=== PATIENT | male | born 1950 ===

== ENCOUNTER 2025-07-31 15:22 | Emergency (ER) | payer MEDICARE, SELFPAY ==
[2025-07-31 15:24] VITALS: BP 145/86
[2025-07-31 15:51] VITALS: BMI 25.2
[2025-07-31] MEDS: ANCEF 10 IV (17:48)
[2025-07-31 18:01] VITALS: BP 140/96
--- NOTE | 2025-07-31 18:03 | ED.GENMED ---
History of Present Illness
General
Chief Complaint: Skin Surface Trauma
Source: patient and family
Exam Limitations: none
Time Seen by Provider: 07/31/25 16:19
Nursing documentation reviewed up to this point in time: agreed with
History of Present Illness
History of Present Illness:
75-year-old male presenting to the emergency department today with concerns of a thumb injury from a log splitter prior to arrival. Noticed immediate bleeding to the area and presented to the ER. Not sure his last tetanus shot was. He was wearing
leather gloves denies any noticeable foreign bodies.
Review of Systems
Review of Systems
Allergies reviewed?: Yes
All Other Systems: ROS reviewed and negative except as documented in HPI and ROS
Phy Exam
Physical Exam
Physical Exam:
GENERAL: Alert , in no apparent distress
EYE: pupils equal and reactive
NECK: Supple, no significant adenopathy.
ENT: o/p clr, mmm.
CARDIAC: Regular rate and rhythm .
LUNGS: Clear breath sounds bilaterally, no acute respiratory distress, no wheezes/rales/rhonchi
ABDOMEN: Soft, without focal tenderness, no r/g, no cvat
NEUROLOGICAL: Alert and oriented, no focal neuro deficits
SKIN: Laceration to the distal dorsal thumb just below the nail of the left side. Warm and dry, skin intact.
MUSCULOSKELETAL: No edema, well perfused.
PSYCH: Normal and appropriate interaction.
Course
Orders/Labs/Results
Orders:
Orders
07/31/25 15:54
Finger(s)/Thumb 2 View Lt [CR Finger(s)/thumb Min 2 Vw Lt] Urgent
Comment:
Reason For Exam: crush injury to left thumb
Indicate Which Finger:: Thumb
07/31/25 16:38
CeFAZolin 2 GRAM [Ancef] 2 grams in 10 ml IV NOW
07/31/25 17:59
Tetanus/Diphth/Acelpertussis [Adacel] 0.5 ml IM .ONCE ONE
Vital Signs
Initial and Last Documented VS:
Initial Vital Signs
Temp Pulse Resp BP Pulse Ox
97.9 F 81 18 145/86 96
07/31/25 15:24 07/31/25 15:24 07/31/25 15:24 07/31/25 15:24 07/31/25 15:24
Last Documented Vital Signs
Temp Pulse Resp BP Pulse Ox
97.9 F 81 18 140/96 95
07/31/25 15:24 07/31/25 18:01 07/31/25 18:01 07/31/25 18:01 07/31/25 18:01
Procedures
Laceration Closure
Left Dorsal First Finger:
Status of Wound: clean
Size of Wound in cm: 3
Description of Wound Edges: surrounded by abrasion and other (Partial fingertip avulsion just distal to the IPJ)
Preparation: cleaned with saline
Anesthesia: Digital-Regional (3 cc of bupivacaine)
Revision/Debridement: minor revision and irrigate-direct pressure
Wound exploration: explored to base- no FB and no tendon involvement
Type of Closure: single layer closure and interrupted sutures
Skin Closure Material: other (4-0 Monocryl)
Number of sutures: 5
MDM/Problems Addressed
MDM/Problems Addressed:
75-year-old male presenting to the emergency department today with concerns of a laceration to the left thumb from a log splitter prior to arrival. Laceration just below the nail matrix with partial fingertip avulsion. Also has a underlying
comminuted nondisplaced fracture. This was discussed with orthopedics recommending approximating the area with sutures. This was sutured with 5 Monocryl sutures and advised for close outpatient follow-up. He was also splinted. He was given a
dose of Ancef and started on Keflex and also given updated tetanus shot. Return precautions given for any evidence of infection.
*Pulse Oximetry
SaO2: 95
Oxygen Mode of Delivery: Room air
Patient hypoxic: no (95)
*Critical Care Note
Total Time (30-74mins, 75-104mins- exclusive of procedures): Not Applicable
ED Attending Note
-
Portions of this chart may have been created with voice recognition software.� Occasional wrong word or��sound alike� substitutions may have occurred due to the inherent limitations of voice recognition software.
Discharge Plan
Departure
Patient Disposition: Home (Routine Discharge)
Date of Disposition: 07/31/25
Time of Disposition: 18:06
Patient with high blood pressure during this ER visit?: No
Condition: Good
Covid-19: Not Applicable
Discharge Problem:
Laceration of thumb, left, complicated, Fracture of thumb, left, open
Instructions: Wound Care (DC), Laceration Repair With Stitches (DC)
Prescriptions:
New
cephalexin 500 mg capsule
500 mg PO QID 3 Days Qty: 12 0RF
Referrals:
Jair Perez MD [Family Provider, Family Practice]
Jose L Rose MD [Active, Orthopedics] - Follow up in 5-7 days
Activity Restrictions/Additional Instructions:
You came to the emergency department today with concerns of an injury to your left thumb. This was cleaned thoroughly and closed with 5 dissolving stitches. Please leave the splint in place and keep the area clean once daily until follow-up with
orthopedics this week. Return for any worsening, new or concerning symptoms. Please also take the prescribed antibiotic 4 times daily for the next 3 days.
Interventions
Interventions:
*Risk Screen - Suicide Last Done: 07/31/25 15:24
*General Assessment Last Done: 07/31/25 15:24
*Neglect/Abuse Screening Last Done: 07/31/25 15:24
*ED- Fall Risk Assessment Last Done: 07/31/25 15:50
*ED COVID-19 Vaccine History Last Done: 07/31/25 15:50
*ED Influenza Vaccine History Last Done: 07/31/25 15:50
ED-Skin Assessment Last Done: 07/31/25 15:51
Discharge Date and Time
Print Language: SPANISH
[2025-07-31] MEDS: ADACEL 0.5 ML IM (18:20)
== END 2025-07-31 18:25 | disposition home or self-care (01) ==
LOC: EMR 15:22
PROVIDERS: EMERGENCY PHYSICIAN Student in an Organized Health Care Education/Training Program; FAMILY PHYSICIAN Family Medicine
DX: S61.012A Laceration without foreign body of left thumb without damage to nail, initial encounter (principal); W23.0XXA Caught, crushed, jammed, or pinched between moving objects, initial encounter; Z23 Encounter for immunization
CPT/HCPCS: 99284; 96374; 12002; 90471; 73140; 90715